=== PATIENT | male | born 1960 | race Caucasian/White ===

== ENCOUNTER 2018-09-13 22:23 | Emergency (ER) | payer BC ==
[2018-09-13] MEDS ORDERED: Lidocaine 1% 10 ML MDV INJECT ONE (23:50)
--- NOTE | 2018-09-14 00:29 | EDM.PDOC ---
ED HPI GENERAL MEDICAL PROBLEM - General Chief Complaint: Upper Extremity Injury/Pain Stated Complaint: LEFT FINGER INJURY Time Seen by Provider: 09/13/18 22:25 Source of Information: Reports: Patient - History of Present Illness INITIAL COMMENTS - FREE TEXT/NARRATIVE: dictated - Related Data Allergies Allergy/AdvReac Type Severity Reaction Status Date / Time No Known Allergies Allergy Verified 09/13/18 22:32 Home Meds: Home Meds . [No Known Home Meds] 09/13/18 [History] Past Medical History - Past Health History Medical/Surgical History: Denies Medical/Surgical History - Past Surgical History Musculoskeletal Surgical History: Reports: Arthroscopic Knee, Shoulder Surgery, Other (See Below) Other Musculoskeletal Surgeries/Procedures:: hip resurfacing Social & Family History - Tobacco Use Smoking Status *Q: Never Smoker - Caffeine Use Caffeine Use: Reports: Energy Drinks - Recreational Drug Use Recreational Drug Use: No Review of Systems - Review of Systems Review Of Systems: ROS reveals no pertinent complaints other than HPI. ED EXAM, GENERAL - Physical Exam Exam: See Below Free Text/Narrative:: dictated Course - Vital Signs Last Recorded V/S: Last Vital Signs Temp 36.8 C 09/13/18 22:29 Pulse 56 L 09/13/18 22:29 Resp 16 09/13/18 22:29 BP 147/92 H 09/13/18 22:29 Pulse Ox 93 L 09/13/18 22:29 - Orders/Labs/Meds Meds: Medications Discontinued Medications Generic Name Dose Route Start Last Admin Trade Name Chante PRN Reason Stop Dose Admin Lidocaine HCl 10 ml 09/13/18 23:50 09/14/18 00:08 Xylocaine 1% INJECT 09/13/18 23:51 10 ml ONETIME ONE Administration Departure - Departure Time of Disposition: 00:28 Disposition: Home, Self-Care 01 Clinical Impression: Laceration of finger Qualifiers: Encounter type: initial encounter Finger: index finger Damage to nail status: without damage Foreign body presence: without foreign body Laterality: left Qualified Code(s): S61.211A - Laceration without foreign body of left index finger without damage to nail, initial encounter - Discharge Information Instructions: Laceration Care, Adult Referrals: César Hutson MD [Primary Care Provider] - Forms: ED Department Discharge Additional Instructions: Have sutures removed in 7 days. Keep wound clean and dry. Watch for any signs of infection. Return with any concerns.
--- NOTE | 2018-09-14 03:30 | ER ---
REASON FOR EMERGENCY ROOM VISIT: Laceration, left index finger. HISTORY OF PRESENT ILLNESS: This 58-year-old man was cutting some roast beef in a dimly lit kitchen when knife slipped, and he sustained a very small scratch on his left thumb, but a significant laceration on his left index finger distally. This bled quite a bit. He applied pressure and wrapped a towel around it and came into the emergency room. PAST MEDICAL HISTORY: Unremarkable. CURRENT MEDICATIONS: None. ALLERGIES: None to medications. REVIEW OF SYSTEMS: Unremarkable, reviewed. PHYSICAL EXAMINATION: GENERAL: Reveals a pleasant 58-year-old man, in no acute distress. EXTREMITIES: He has a 2 cm curvilinear laceration over the lateral aspect of distal phalanx of his left index finger. It goes down to the subcutaneous tissue. It is oozing. The curvilinear laceration is such that he actually has a flap of distal tissue, but it all looks perfectly viable. This measures approximately 2 cm in total. Distally, his sensation is intact. It does not appear to go deeper than the subcutaneous tissue. There is no involvement of the joint or tendons. COURSE IN THE EMERGENCY ROOM: It should be noted that the patient feels that he had his last tetanus booster approximately 7 years ago. He is going to check on this and get back to us if it was longer than 10 years. The wound was cleaned with bactericidal soap and soaked. Local anesthesia was achieved with approximately 4 mL of 1% Xylocaine without epinephrine. Using aseptic technique, the skin edges were approximated with 3 interrupted 3-0 monofilament nylon sutures and the approximation was excellent. The skin appeared to be completely viable. Antibiotic ointment was applied over this, and occlusive gauze dressing was applied over this. He was instructed regarding wound care symptoms and signs of infection and to have his sutures removed in approximately 8 days' time. All questions were answered. He will be checking on the exact date of his last tetanus toxoid, and he will get back to us if it was more than 10 years. TAMIKO /[id number]
--- NOTE | 2018-09-15 07:10 | ER ---
ADDENDUM: IMPRESSION: Laceration, left index finger. MMODAL /[id number]
== END 2018-09-14 00:30 | disposition home or self-care (01) ==
LOC: JD.ED 22:23
DX: S61.211A Laceration without foreign body of left index finger without damage to nail, initial encounter (principal); W26.0XXA Contact with knife, initial encounter
CPT/HCPCS: 12001; 99282; J2001

== ENCOUNTER 2018-09-21 10:43 | Emergency (ER) | payer BC | END 2018-09-21 11:01 | disposition home or self-care (01) | LOC: JD.ED 10:43 | DX: S61.211D Laceration without foreign body of left index finger without damage to nail, subsequent encounter (principal); W26.0XXD Contact with knife, subsequent encounter ==